=== PATIENT | male | born 1995 | race Caucasian/White ===

== ENCOUNTER 2022-11-07 12:07 | Emergency (ER) | payer SELFPAY ==
[~2022-11-07] VITALS: Ht 167.6 cm; Wt 86.2 kg
[2022-11-07 12:09] VITALS: O2SAT 100
[2022-11-07 12:49] LABS: BASOPHILS % 0.5 % (0.0-2.0); DIFFERENTIAL COMMENT 0; EOSINOPHILS % 0.9 % (0.0-5.0); HEMOGLOBIN. 17.9 g/dL (14.0-18.0); MEAN CORPUSCULAR HEMOGLOBIN 30.8 pg (28.0-32.0); MEAN CORPUSCULAR HGB CONC 35.9 g/dL (31.0-37.0); MEAN PLATELET VOLUME 7.3 fl (7.4-10.4); MONOCYTES % 8.1 % (2.0-8.0); NEUTROPHILS % 65.5 % (40.0-76.0); PLATELET 377 x1000/uL (130-400); RED BLOOD CELL COUNT 5.82 mill/uL (4.7-6.1); RED CELL DISTRIBUTION WIDTH 11.9 % (11.6-14.6); WHITE BLOOD COUNT 7.1 x1000/uL (4.5-11.0)
[2022-11-07 13:25] LABS: CHLORIDE 105 mEq/L (98-107); INDEX HEMOLYSI 1 (1-3); INDEX ICTERIC 2 (1-4); INDEX LIPEMIC 1 (1-3); POTASSIUM 3.6 mEq/L (3.5-5.1); SODIUM 135 mEq/L (136-145)
[2022-11-07 13:33] LABS: ALANINE AMINOTRANSFERASE 138 IU/L (13-61); ALBUMIN 4.2 g/dL (3.4-5.0); ASPARTATE AMINOTRANSFERASE 97 IU/L (15-37); BILIRUBIN TOTAL 2.8 mg/dL (0.1-1.0); CALCIUM 9.2 mg/dL (8.5-10.1); CARBON DIOXIDE 25 mEq/L (21-32); CREATININE 0.9 mg/dL (0.6-1.3); GLUCOSE 131 mg/dL (70-105); PROTEIN TOTAL 8.4 g/dL (6.0-8.3); TROPONIN I HIGH SENSITIVITY 4 ng/L (<78); UREA NITROGEN BLOOD 11 mg/dL (7-21)
[2022-11-07 15:06] VITALS: BP 137/106; PULSE 99; RESP 16; TEMP 98.6
== END 2022-11-07 15:07 | disposition home or self-care (01) ==
LOC: ER 12:07
DX: R07.9 Chest pain, unspecified (principal); R74.01 Elevation of levels of liver transaminase levels; J45.909 Unspecified asthma, uncomplicated
CPT/HCPCS: 36415; 71045; 80053; 84484; 85025; 93005; 99285